=== PATIENT | female | born 1975 | race American Indian/Alaskan Native ===

== ENCOUNTER 2016-06-24 13:50 | Observation (INO) | payer OTHER ==
[2015-09-22 23:54] VITALS: BMI 24.4
[2016-06-24] MEDS ORDERED: Sodium Chloride 0.9% 1,000 ML IV SCH (14:20)
[2016-06-25] MEDS ORDERED: Sodium Chloride 0.9% 1,000 ML IV SCH (04:00)
[2016-06-25 07:00] VITALS: RESP 16
[2016-06-25 09:16] VITALS: BP 134/73; PULSE 67; TEMP 98.1
[2016-06-25] MEDS ORDERED: Ergocalciferol 50,000 Intl Units Cap PO SCH (10:00)
[2016-06-25 10:11] LABS: PH,URINE 5.5 (4.7-8.0); URINE BILIRUBIN SMALL (NEGATIVE); URINE BLOOD LARGE (NEGATIVE); URINE GLUCOSE (UA) NEGATIVE (NEGATIVE); URINE KETONE TRACE mg/dL (NEGATIVE); URINE LEUKOCYTE ESTERASE SMALL Leu/uL (NEGATIVE); URINE PROTEIN 100 mg/dL (<30 mg/dL)
[2016-06-25 10:12] LABS: URINE APPEARANCE CLOUDY (CLEAR); URINE COLOR RED (YELLOW); URINE EPITHELIAL CELLS 0 - 2 /hpf (0-5); URINE RBC TNTC /hpf (0-2); URINE WBC 0 - 2 /hpf (0-6)
[2016-06-25 10:30] VITALS: O2SAT 99
[2016-06-25 11:58] LABS: ADD MANUAL DIFF? NO; BASO # 0.02 K/mm3 (0.0-2.0); BASO % 0.4 % (0.0-3.0); EOS # 0.1 (0.0-0.7); EOS % 1.9 % (1.5-5.0); GRAN # 3.11 (1.4-6.5); GRAN % 66.6 % (50.0-68.0); HEMATOCRIT 31.7 % (36.0-48.0); LYMPH # 1.1 (1.2-3.4); LYMPH % 24.2 % (22.0-35.0); MEAN CELL VOLUME 69.8 fL (80.0-105.0); MEAN CORPUSCULAR HEMOGLOBIN 23.1 pg (25.0-35.0); MEAN CORPUSCULAR HGB CONC 33.1 g/dl (31.0-37.0); MONO # 0.3 (0.1-0.6); MONO % 6.9 % (1.0-6.0); PLATELET COUNT 268 10^3/uL (120.0-450.0); RED CELL DISTRIBUTION WIDTH 20.4 % (11.5-14.5); WHITE BLOOD COUNT 4.7 10^3/ul (4.5-11.0)
[2016-06-25 13:55] LABS: BLOOD UREA NITROGEN 9 mg/dL (7-21); CALCIUM 9.4 mg/dL (8.4-10.5); CARBON DIOXIDE 23 mmol/L (21-33); CHLORIDE 104 mmol/L (98-107); GFR AFRICAN-AMERICAN > 60; GLUCOSE,RANDOM 84 mg/dL (70-110); SODIUM 141 mmol/L (132-148)
[2016-06-25 13:56] LABS: ALKALINE PHOSPHATASE 128 U/L (38-133); ALT/SGPT 24 U/L (7-56); AST/SGOT 33 U/L (15-39); BILIRUBIN,TOTAL 0.6 mg/dL (0.2-1.3)
[2016-06-25 14:08] LABS: MEAN CELL VOLUME 64.9 fL (80.0-105.0); MEAN CORPUSCULAR HEMOGLOBIN 20.7 pg (25.0-35.0); MEAN CORPUSCULAR HGB CONC 31.9 g/dl (31.0-37.0); PLATELET COUNT 209 10^3/uL (120.0-450.0); RED CELL DISTRIBUTION WIDTH 17.5 % (11.5-14.5); WHITE BLOOD COUNT 5.5 10^3/ul (4.5-11.0)
--- NOTE | 2016-07-15 17:10 | DS ---
For Dr. Barrientos. SUBJECTIVE: The patient is a 41-year-old black female with hemoglobin significantly compromised with patient symptomatic with lightheadedness, dizziness, admitted by the Emergency Room for transfusion of 2 units of packed red blood cells which was done with good effect. The patient is now anxious for discharge home and we will do so after transfusion is completed. Again, the patient is otherwise in no acute distress. OBJECTIVE: VITAL SIGNS: Temperature 98.1, pulse 67, respirations 16, blood pressure 134/73. HEENT: Unremarkable. NECK: Supple. HEART: Regular rate. LUNGS: Clear. ABDOMEN: Soft, nontender. EXTREMITIES: No edema. SKIN: Warm, dry and clear. NEUROLOGIC: Awake, alert, and oriented x 3. LABORATORY DATA: Labs today include white blood cell count of 4.7, hemoglobin 10.5 up from 8.6 yeste rday, hematocrit 31.7, platelet count 268,000. Her chem metabolic panel was completely within normal range. Urinalysis showed large amount of blood, positive nitrite. Possibly with her menses. ASSESSMENT: Symptomatic anemia with transfusions needed. A history of fibroids. DISCHARGE MEDICATIONS: Include Tylenol as needed for pain. Also, vitamin D, Pepcid, Lasix, an d folic acid. PLAN: The patient is to continue present medical regimen with the patient to follow up with Dr. Maribel montiel for IV iron in approximately 1 week's time or earlier. Chapincito Cox MD cc: [phone] TT: 07/15/2016 17:09:49 marina
== END 2016-06-25 13:26 | disposition home or self-care (01) ==
LOC: ED 13:50 → ERH 14:20 → 3RSO 23:15
PROVIDERS: ADMIT Family Medicine; ATTEND Family Medicine
DX: D64.9 Anemia, unspecified (principal); R42 Dizziness and giddiness; R53.1 Weakness
CPT/HCPCS: 36415; 36430; 80053; 81001; 85025; 85027; 86850; 86900; 86920; 87086; 87206; 99281; G0378; J7040; P9016

== ENCOUNTER 2017-10-01 18:31 | Observation (INO) | payer OTHER ==
[2017-10-01 18:32] VITALS: BMI 24.4
[2017-10-01 19:46] LABS: PH,URINE 6.5 (4.7-8.0); URINE BILIRUBIN NEGATIVE (NEGATIVE); URINE BLOOD TRACE-INTACT (NEGATIVE); URINE GLUCOSE (UA) NEGATIVE (NEGATIVE); URINE LEUKOCYTE ESTERASE TRACE Leu/uL (NEGATIVE); URINE PROTEIN TRACE mg/dL (<30 mg/dL)
[2017-10-01] MEDS: Sodium Chloride 0.9% 1,000 ML IV SCH (19:46)
[2017-10-01 20:01] LABS: URINE APPEARANCE CLEAR (CLEAR); URINE COLOR YELLOW (YELLOW)
--- NOTE | 2017-10-01 20:01 | ED PDOC ---
Arrival/HPI - General Chief Complaint: Groin Pain Time Seen by Provider: 10/01/17 19:12 Historian: Patient - History of Present Illness Narrative History of Present Illness (Text): 10/01/17 19:58 42 year old female, whose past medical history includes uterine fibroids and a partial hysterectomy, presents to the emergency department with lower abdominal pain, since multiple days, and worsening in the past day. Patient states pain is localized more to lower right abdomen and has been intermittent over past few days. Patient denies any associated nausea, vomiting, or diarrhea. Patient also denies any urinary complaints, vaginal discharge, fever, chills, appetite changes, or any other complaints. Time/Duration: < week (few days, worsening over the past day) Symptom Onset: Gradual Symptom Course: Unchanged Quality: Cramping Past Medical History - Provider Review Nursing Documentation Reviewed: Yes - Infectious Disease Hx of Infectious Diseases: None - Cardiac Hx Cardiac Disorders: No - Pulmonary Hx Respiratory Disorders: No - Neurological Hx Neurological Disorder: Yes Hx Dizziness: Yes - HEENT Hx HEENT Disorder: No - Renal Hx Renal Disorder: No - Endocrine/Metabolic Hx Endocrine Disorders: No - Hematological/Oncological Hx Anemia: Yes - Integumentary Hx Dermatological Disorder: No - Musculoskeletal/Rheumatological Hx Falls: No - Gastrointestinal Hx Gastrointestinal Disorders: No - Genitourinary/Gynecological Hx Genitourinary Disorders: Yes (FIBROIDS) - Psychiatric Hx Psychophysiologic Disorder: No Hx Substance Use: No - Surgical History Hx Hysterectomy: Yes (Partial) Other/Comment: fibroids removed from uterus 06/03/15 - Anesthesia Hx Anesthesia Reactions: No Hx Malignant Hyperthermia: No Family/Social History - Physician Review Nursing Documentation Reviewed: Yes Family/Social History: No Known Family HX Smoking Status: Never Smoked Hx Alcohol Use: No Hx Substance Use: No Allergies/Home Meds Allergies/Adverse Reactions: Allergies celecoxib [From Celebrex] Allergy (Verified 10/01/17 19:01) RASH Home Medications: Home Meds Medication Instructions Recorded Confirmed No Known Home Med 10/01/17 10/01/17 Review of Systems - Physician Review All systems were reviewed & negative as marked: Yes - Review of Systems Constitutional: Normal. absent: Fevers, Night Sweats Eyes: Normal ENT: Normal Respiratory: Normal Cardiovascular: Normal Gastrointestinal: Abdominal Pain. absent: Diarrhea, Nausea, Vomiting, Appetite Changes Genitourinary Female: Normal. absent: Urine Output Changes, Vaginal Discharge Musculoskeletal: Normal Skin: Normal Neurological: Normal Endocrine: Normal Hemo/Lymphatic: Normal Psychiatric: Normal Physical Exam Vital Signs Reviewed: Yes Vital Signs Temp Pulse Resp BP Pulse Ox 10/01/17 22:45 76 18 151/87 H 99 10/01/17 21:44 82 16 157/93 H 100 10/01/17 18:56 98.6 F 76 18 167/86 H 100 Temperature: Afebrile Blood Pressure: Normal Pulse: Regular Respiratory Rate: Normal Appearance: Positive for: Well-Appearing, Non-Toxic, Comfortable Pain Distress: None Mental Status: Positive for: Alert and Oriented X 3 - Systems Exam Head: Present: Atraumatic, Normocephalic Pupils: Present: PERRL Extroacular Muscles: Present: EOMI Conjunctiva: Present: Normal Mouth: Present: Moist Mucous Membranes Neck: Present: Normal Range of Motion Respiratory/Chest: Present: Clear to Auscultation, Good Air Exchange. No: Respiratory Distress, Accessory Muscle Use Cardiovascular: Present: Regular Rate and Rhythm, Normal S1, S2. No: Murmurs Abdomen: Present: Tenderness (mild tenderness to RLQ), Normal Bowel Sounds. No : Rebound, Guarding Back: Present: Normal Inspection Upper Extremity: Present: Normal Inspection. No: Cyanosis, Edema Lower Extremity: Present: Normal Inspection. No: Edema Neurological: Present: GCS=15, CN II-XII Intact, Speech Normal Skin: Present: Warm, Dry, Normal Color. No: Rashes Psychiatric: Present: Alert, Oriented x 3, Normal Insight, Normal Concentration Medical Decision Making ED Course and Treatment: 10/01/17 20:04 Impression: 42 year old female presents to the emergency department with lower abdominal pain. Differential Diagnosis included but are not limited to: intractable pain secondary to ovarian cysts vs. appendicitis vs. air-pockets endocervical/ endometrial ?significant Plan: -- CT ABD & Pelvis -- Labs -- Urinalysis -- Reassess and disposition Prior Visits: Notes and results from previous visits were reviewed. Progress Notes: 10/01/17 22:58 CT Abdomen and Pelvis shows: Lung bases: There is minimal right base atelectasis. ABDOMEN: Liver: Unremarkable. No mass. Gallbladder and bile ducts: Unremarkable. No calcified stones. No ductal dilation. No significant wall thickening. Pancreas: Unremarkable. No mass. No ductal dilation. Spleen: Unremarkable. No splenomegaly. Adrenals: Unremarkable. No mass. Kidneys and ureters: Both kidneys are normal in morphology and demonstrate homogeneous enhancement without mass. No ureteral enlargement or stones are noted. Stomach and bowel: Bowel loops appear within normal limits, no signs of wall thickening, mucosal edema, or bowel distention. PELVIS: Appendix: The appendix is not definitively visualized. However, no secondary signs of appendicitis are present. Bladder: Unremarkable. No mass. Reproductive: Retroverted uterus. There has been a partial hysterectomy. Air pockets are identified within the endometrial cavity and within the cervical canal. The uterus appears slightly heterogeneous without obvious collections of fluid. Multiple ovarian follicles are present bilaterally largest on the right 2.6 cm. ABDOMEN and PELVIS: Intraperitoneal space: Within the pelvis, no free fluid or fluid collections or abscess. No free air is seen. Bones/joints: No acute fracture. No dislocation. Soft tissues: Unremarkable. Vasculature: Small nonspecific varices near the spleen. The spleen otherwise unremarkable. The aorta and IVC appear within normal limits. No abdominal aortic aneurysm. Lymph nodes: Unremarkable. No enlarged lymph nodes. IMPRESSION: Heterogeneous uterus with a number of air pockets within the endometrial cavity and within the endocervical canal. Differential diagnosis includes postoperative change although active infection with gas-forming organisms cannot be excluded. No evidence of pelvic abscess or fluid collection. Bilateral ovarian follicles as described. Consider correlation the transvaginal sonogram as clinically warranted. Dictated and Authenticated by: Brody Velasco MD 10/01/2017 10:23 PM Eastern Time ([place] & [place]) 10/02/17 01:08 Transvaginal US shows: Uterus/cervix: Unremarkable. Normal endometrial stripe thickness 1.4 mm. No myometrial mass. The uterus measures 4.9 cm x 2.1 cm x 3 cm. Comparing to prior pelvic ultrasound multiple uterine fibroids are no longer visible Right ovary: Enlarged RIGHT ovary. 7.6 cm 3.4 cm x 6 cm. A large simple cyst is seen measuring 4.8 cm x 1.7 cm x 3.9 cm several smaller cysts are present Normal blood flow. Left ovary: Unremarkable. No mass. Normal blood flow. LEFT ovary measures 4 cm x 2 cm x 3.7 cm. Multiple follicular cysts are present. Free fluid: No free fluid. IMPRESSION: 1. Unremarkable uterus normal endometrium 2. Large RIGHT ovary with multiple cysts 3. Negative LEFT ovary. 10/02/17 01:30 Pelvic exam performed, PATRICIA Quick present as hat and cap sewer, no cervical motion tenderness, no adnexal tenderness, no palpable masses, no discharge, cervical os closed. 10/02/17 02:[address] Hammond, who is aware and agrees with plan. Accepts pt in to her service. [facility] pain. Requests Dr. Mcnulty on consult. - Lab Interpretations Lab Results: 10/01/17 19:35 10/01/17 19:35 Lab Results 10/01/17 19:35: WBC 8.3 D, RBC 5.20, Hgb 12.3, Hct 36.0, MCV 69.2 L, MCH 23.7 L , MCHC 34.2, RDW 16.1 H, Plt Count 303 10/01/17 19:35: Sodium 142, Potassium 3.6, Chloride 105, Carbon Dioxide 25, Anion Gap 15, BUN 11, Creatinine 0.5 L, Est GFR ( Amer) > 60, Est GFR ( Non-Af Amer) > 60, Random Glucose 83, Calcium 9.1, Total Bilirubin 0.3, AST 31, ALT 14, Alkaline Phosphatase 148 H, Total Protein 8.2, Albumin 4.3, Globulin 3.9 , Albumin/Globulin Ratio 1.1, Lipase 83 10/01/17 19:20: Urine Color Yellow, Urine Appearance Clear, Urine pH 6.5, Ur Specific [place] 1.020, Urine Protein Trace H, Urine Glucose (UA) Negative, Urine Ketones Negative, Urine Blood Trace-intact H, Urine Nitrate Negative, Urine Bilirubin Negative, Urine Urobilinogen 1.0 H, Ur Leukocyte Esterase Trace H, Urine RBC 0 - 2, Urine WBC 0 - 2, Ur Epithelial Cells 6 - 8, Urine Bacteria Neg, Urine HCG, Qual Negative I have reviewed the lab results: Yes - RAD Interpretation Radiology Orders: 10/01/17 19:26 ABD & PELVIS IV CONTRAST ONLY [CT] Stat 10/01/17 23:00 TRANSVAGINAL [US] Stat [place] Sewer: Radiologist - Medication Orders Current Medication Orders: Sodium Chloride (Sodium Chloride 0.9%) 1,000 mls @ 100 mls/hr IV .Q10H ALEX Last Admin: 10/01/17 19:46 Dose: 100 mls/hr eMAR Start Stop Document 10/01/17 19:46 CNR (Rec: 10/01/17 19:46 CNR [id number]) Intravenous Solution Start Date 10/01/17 Start Time 19:46 Sodium Chloride (Sodium Chloride 0.9%) 1,000 mls @ 100 mls/hr IV .Q10H STA Stop: 10/02/17 12:26 - Scribe Statement The provider has reviewed the documentation as recorded by the Josephibe Sanjiv Schmidt Provider Scribe Attestation: All medical record entries made by the Scribe were at my direction and personally dictated by me. I have reviewed the chart and agree that the record accurately reflects my personal performance of the history, physical exam, medical decision making, and the department course for this patient. I have also personally directed, reviewed, and agree with the discharge instructions and disposition. Disposition/Present on Arrival - Present on Arrival Any Indicators Present on Arrival: No History of DVT/PE: No History of Uncontrolled Diabetes: No Urinary Catheter: No History of Decub. Ulcer: No History Surgical Site Infection Following: None - Disposition Have Diagnosis and Disposition been Completed?: Yes Diagnosis: Abdominal pain Disposition: HOSPITALIZED Disposition Time: 02:24 Patient Plan: Observation Patient Problems: Current Active Problems Problem Status Onset Abdominal pain Acute Condition: STABLE Referrals: Carito Hammond MD [Primary Care Provider] - Follow up with primary Forms: N-1-1 (Tajik)
[2017-10-01 20:02] LABS: HCG,QUALITATIVE URINE NEGATIVE (NEGATIVE)
[2017-10-01 20:09] LABS: URINE RBC 0 - 2 /hpf (0-2); URINE WBC 0 - 2 /hpf (0-6)
[2017-10-01 20:10] LABS: HEMOGLOBIN 12.3 g/dL (12.0-16.0); MEAN CELL VOLUME 69.2 fl (80.0-105.0); MEAN CORPUSCULAR HEMOGLOBIN 23.7 pg (25.0-35.0); MEAN CORPUSCULAR HGB CONC 34.2 g/dl (31.0-37.0); PLATELET COUNT 303 10^3/uL (120.0-450.0); RED CELL DISTRIBUTION WIDTH 16.1 % (11.5-14.5); WHITE BLOOD COUNT 8.3 10^3/ul (4.5-11.0)
[2017-10-01 20:10] LABS: URINE BACTERIA NEG (NEG)
[2017-10-01 20:52] LABS: ALB/GLOB RATIO 1.1 (1.1-1.8); ALBUMIN 4.3 g/dL (3.0-4.8); ALT/SGPT 14 U/L (7-56); AST/SGOT 31 U/L (14-36); BLOOD UREA NITROGEN 11 mg/dL (7-21); CALCIUM 9.1 mg/dL (8.4-10.5); GFR NON-AFRICAN AMERICAN > 60; LIPASE 83 U/L (23-300)
[2017-10-01] MEDS ORDERED: Iohexol 350 MG/100 ML VIAL ONE (21:00)
[2017-10-02] MEDS ORDERED: Sodium Chloride 0.9% 1,000 ML IV STA (02:27)
[2017-10-02] MEDS ORDERED: Morphine 2 mg/ml ISec IVP PRN (04:07)
--- NOTE | 2017-10-02 08:09 | CP.PCM.CON ---
History of Present Illness - History of Present Illness History of Present Illness: Surgery Consult: Dr. David Pt is a 42F with PMHx significant for fibroids who presented to [facility] with complaints of right/left lower quadrant pain & fullness. Pt states her pain started two days ago as generalized and dull and then localized more so to the lower half of her abdomen. She recalls having a similar episode in the past when she had her fibroids removed. She states she no longer gets her period because she had a "partial hysterectomy" when her fibroids were removed. She denies having any other symptoms such as nausea/vomiting, fevers/chills, diarrhea or constipation. In the ER, pt had a CT abdomen/pelvis which showed R ovarian cyst and other non- specific findings. Surgery called to evaluate. Currently, pt states she feels a little better but pain is still present. She denies other complaints. PMHx: Fibroids PSHx: Myomectomy with partial hysterectomy SocialHx: denies smoking, EtOH/drugs NKDA Review of Systems - Review of Systems All systems: reviewed and no additional remarkable complaints except (as per HPI ) Past Patient History - Infectious Disease Hx of Infectious Diseases: None - Past Social History Smoking Status: Never Smoked - CARDIAC Hx Cardiac Disorders: No - PULMONARY Hx Respiratory Disorders: No - HEENT Hx HEENT Problems: No - RENAL Hx Chronic Kidney Disease: No - ENDOCRINE/METABOLIC Hx Endocrine Disorders: No - HEMATOLOGICAL/ONCOLOGICAL Hx Anemia: Yes - INTEGUMENTARY Hx Dermatological Problems: No - MUSCULOSKELETAL/RHEUMATOLOGICAL Hx Falls: No - GASTROINTESTINAL Hx Gastrointestinal Disorders: No - GENITOURINARY/GYNECOLOGICAL Hx Genitourinary Disorders: Yes (FIBROIDS) - PSYCHIATRIC Hx Psychophysiologic Disorder: No Hx Substance Use: No - SURGICAL HISTORY Hx Hysterectomy: Yes (Partial) Other/Comment: fibroids removed from uterus 06/03/15 - ANESTHESIA Hx Anesthesia: Yes Hx Anesthesia Reactions: No Hx Malignant Hyperthermia: No Meds Allergies/Adverse Reactions: Allergies Allergy/AdvReac Type Severity Reaction Status Date / Time celecoxib [From Celebrex] Allergy RASH Verified 10/01/17 19:01 - Medications Medications: Current Medications Sodium Chloride (Sodium Chloride 0.9%) 1,000 mls @ 100 mls/hr IV .Q10H ALEX Last Admin: 10/01/17 19:46 Dose: 100 mls/hr Sodium Chloride (Sodium Chloride 0.9%) 1,000 mls @ 100 mls/hr IV .Q10H STA Stop: 10/02/17 12:26 Morphine Sulfate (Morphine) 2 mg IVP Q4H PRN PRN Reason: Pain, moderate (4-7) Last Admin: 10/02/17 04:17 Dose: 2 mg Physical Exam - Constitutional Appears: Well, No Acute Distress - Head Exam Head Exam: ATRAUMATIC, NORMOCEPHALIC - Eye Exam Eye Exam: Normal appearance - ENT Exam ENT Exam: Mucous Membranes Moist - Respiratory Exam Respiratory Exam: NORMAL BREATHING PATTERN - Cardiovascular Exam Cardiovascular Exam: RRR - GI/Abdominal Exam GI & Abdominal Exam: Soft, Tenderness (suprapubic with deep palpation ). absent : Distended, Guarding, Rebound - Neurological Exam Neurological exam: Alert, Oriented x3 - Skin Skin Exam: Dry, Warm Results - Vital Signs Recent Vital Signs: Last Vital Signs Temp 97.9 F 10/02/17 04:39 Pulse 73 10/02/17 04:39 Resp 20 10/02/17 04:39 BP 151/88 H 10/02/17 04:39 Pulse Ox 100 10/02/17 03:17 - Labs Result Diagrams: 10/01/17 19:35 10/01/17 19:35 - Imaging and Cardiology CT scan - abdomen Status: Image reviewed by me, Report reviewed by me Assessment & Plan - Assessment and Plan (Free Text) Assessment: 42F with abdominal pain Plan: - pain likely related to ovarian cyst/possible fibroids - f/u transvaginal US - 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 Frankie Mars
[2017-10-02] MEDS: Sodium Chloride 0.9% 1,000 ML IV SCH (08:54)
--- NOTE | 2017-10-02 09:13 | CT ---
Date of service: 10/01/2017 PROCEDURE: CT Abdomen and Pelvis with contrast HISTORY: lower abdominal pain COMPARISON: 02/21/2015 TECHNIQUE: CT scan of the abdomen and pelvis was performed after administration of intravenous contrast. Oral contrast was not administered. Coronal and sagittal reformatted images were obtained. Contrast dose: 100 mL Omnipaque 350 Radiation dose: Total exam DLP = 272.91 mGy-cm. This CT exam was performed using one or more of the following dose reduction techniques: Automated exposure control, adjustment of the mA and/or kV according to patient size, and/or use of iterative reconstruction technique. FINDINGS: LOWER THORAX: There is linear atelectasis/scarring in the right lung base. The left lung base is clear. LIVER: Normal in size with homogeneous enhancement. No gross lesion or ductal dilatation. GALLBLADDER AND BILE DUCTS: No calcified gallstones. PANCREAS: Normal in size with homogeneous enhancement. No gross lesion or ductal dilatation. SPLEEN: Normal in size and appearance. ADRENALS: No discrete nodule. KIDNEYS AND URETERS: Normal in size with homogeneous enhancement. No hydronephrosis. No solid mass. VASCULATURE: No aortic aneurysm. BOWEL: The small bowel loops are normal in caliber. There is large amount of stool in the colon. No bowel obstruction. APPENDIX: Normal appendix. PERITONEUM: No free fluid. No free air. LYMPH NODES: No enlarged lymph nodes. BLADDER: Normal in appearance. REPRODUCTIVE: The uterus is normal in size. There are multiple foci of air in the endometrial and endocervical canal. There are multiple cysts in the right ovary, the largest measures 2.5 cm. BONES: No acute fracture. OTHER FINDINGS: None. IMPRESSION: No acute abdominal or pelvic abnormality. Multiple cysts in the right ovary, the largest measures 2.5 cm. Correlation with pelvic ultrasound is recommended. Air in the endometrial endocervical canal could be related to recent surgical intervention or maybe post coital in etiology. Infection is not entirely excluded. Clinical focal follow-up is advised. A preliminary report was provided by [employer]
--- NOTE | 2017-10-02 10:52 | US ---
Date of service: 10/01/2017 HISTORY: pain COMPARISON: None available. TECHNIQUE: Transvaginal pelvic ultrasound was performed. FINDINGS: UTERUS: Measures 4.9 x 2.1 x 3.0 cm. Status post partial hysterectomy. ENDOMETRIUM: Measures 1.4 mm in diameter. Unremarkable. CERVIX: No cervical abnormality identified. RIGHT OVARY: Measures 7.6 x 3.4 x 6.0 cm. No solid mass. Normal flow. There is a tubular cystic structure in the right adnexa and thin linear echogenic lace-like appearance in the right ovary. LEFT OVARY: Measures 4.1 x 2.0 x 3.7 cm. No solid mass. Normal flow. There are 2 cysts measuring 1.5 x 1.1 x 1.5 cm and 1.9 x 0.9 x 1.6 cm. FREE FLUID: No significant free fluid noted. OTHER FINDINGS: None. IMPRESSION: The right ovary is enlarged. Tubular cystic structure in the right adnexa could represent hydrosalpinx. Suspect complicated/hemorrhagic cyst in the right ovary. No evidence for torsion. Small simple cysts in the left ovary. A preliminary report was provided by [employer].
[2017-10-02] MEDS: metroNIDAZOLE IV 500 mg/100 ml 500 MG/100 ML BAG IVPB SCH ×2 (13:37→21:54)
[2017-10-02] MEDS: cefTRIAXone 1 gm 1 GM/100 ML BAG IVPB SCH (13:38)
--- NOTE | 2017-10-02 15:55 | CP.PCM.PCO ---
Physician Communication Note - Physician Communication Note Physician Communication Note: Dx:R HemorOvarian cyst-Pt requests DrMarki/No surgery dinora
--- NOTE | 2017-10-02 16:03 | ED PDOC ---
ED Additional Note - Physician Additional Note Physician Additional Note: Transvaginal US placed into PA review folder; FINDINGS: UTERUS: Measures 4.9 x 2.1 x 3.0 cm. Status post partial hysterectomy. ENDOMETRIUM: Measures 1.4 mm in diameter. Unremarkable. CERVIX: No cervical abnormality identified. RIGHT OVARY: Measures 7.6 x 3.4 x 6.0 cm. No solid mass. Normal flow. There is a tubular cystic structure in the right adnexa and thin linear echogenic lace-like appearance in the right ovary. LEFT OVARY: Measures 4.1 x 2.0 x 3.7 cm. No solid mass. Normal flow. There are 2 cysts measuring 1.5 x 1.1 x 1.5 cm and 1.9 x 0.9 x 1.6 cm. FREE FLUID: No significant free fluid noted. OTHER FINDINGS: None. IMPRESSION: The right ovary is enlarged. Tubular cystic structure in the right adnexa could represent hydrosalpinx. Suspect complicated/hemorrhagic cyst in the right ovary. No evidence for torsion. Small simple cysts in the left ovary. A preliminary report was provided by [employer]. I discussed findings of hydrosalpinx with dr. 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
[2017-10-03] MEDS: metroNIDAZOLE IV 500 mg/100 ml 500 MG/100 ML BAG IVPB SCH ×3 (05:19→22:05)
[2017-10-03 07:02] LABS: HEMOGLOBIN 11.6 g/dL (12.0-16.0); MEAN CELL VOLUME 69.2 fl (80.0-105.0); MEAN CORPUSCULAR HEMOGLOBIN 22.9 pg (25.0-35.0); MEAN CORPUSCULAR HGB CONC 33.1 g/dl (31.0-37.0); PLATELET COUNT 216 10^3/uL (120.0-450.0); RBC 5.06 10^6/uL (3.5-6.1); WHITE BLOOD COUNT 6.8 10^3/ul (4.5-11.0)
[2017-10-03 07:14] LABS: BLOOD UREA NITROGEN 7 mg/dL (7-21); CALCIUM 9.1 mg/dL (8.4-10.5); GFR NON-AFRICAN AMERICAN > 60; HDL CHOLESTEROL 41 mg/dL (29-60)
[2017-10-03 07:20] LABS: IRON 80 ug/dL (45-180)
[2017-10-03 07:25] LABS: LDL CHOLESTEROL 101 mg/dL (0-129)
[2017-10-03 07:29] LABS: % IRON SATURATION 19 % (20-55); TOTAL IRON BINDING CAPACITY 421 ug/dL (265-497)
[2017-10-03] MEDS: cefTRIAXone 1 gm 1 GM/100 ML BAG IVPB SCH (09:13)
--- NOTE | 2017-10-03 09:16 | HP ---
date 10/02/17 Copied To: Carito Hammond MD Attending MD: Carito Hammond MD CHIEF COMPLAINT: Groin pain. HISTORY OF PRESENT ILLNESS: Ms. Rachell Leos, a 42-year-old my private patient with history of multiple time uterine fibroids, partial hysterectomy, came to the Emergency Department with lower abdominal pain from many days and worsening in the past day. The patient states the pain is localized more to lower right abdomen and has been intermittent over past few days. The patient's mother was sitting on the bedside and aunt was sitting on the bedside also, actually they gave more history. The patient denied any associated nausea, vomiting or diarrhea. The patient also denies any urinary symptoms or vaginal discharge. No fever, no chills. No appetite changes. No hematuria or hematochezia. PAST MEDICAL HISTORY: Dizziness, fibroid uterus, partial hysterectomy, surgery of fibroid uterus by Dr. Johnson. FAMILY HISTORY: Father and mother, noncontributory. HABITS: Never smoked. No drugs. No ethanol. ALLERGIES: THE PATIENT IS ALLERGIC WITH CELEBREX. HOME MEDICATIONS: Denied. REVIEW OF SYSTEMS: The patient was seen and examined on the bedside. Mother and aunt was sitting on the bedside also. No nausea, vomiting, diarrhea. No hematuria or hematochezia. No headache. No dizziness. No chest pain. No appetite change. No urine output change. No vaginal discharge. Having pelvic pain. PHYSICAL EXAMINATION: VITAL SIGNS: Temperature 98.6, pulse 100, respiratory rate 18, blood pressure 167/86.. HEENT: Head normocephalic, atraumatic. Eyes PERRLA. Extraocular muscles intact. Conjunctivae clear. Nose patent. Mucous membrane moist. NECK: Supple. No carotid bruit. No JVD or thyromegaly. CHEST: Bilaterally symmetrical. HEART: S1 and S2 positive. LUNGS: Clear to auscultation. ABDOMEN: Tender. Mild tenderness in the right lower quadrant. Normal bowel sounds. No organomegaly. No rebound. No guarding. EXTREMITIES: No edema. No cyanosis. NEUROLOGICAL: The patient is awake, alert. Follows simple commands. Cranial nerves II through XII are grossly intact. LABORATORY DATA: White blood cells noted , hemoglobin 12.3, hematocrit 36, platelets 303. Sodium 142, potassium 3.6, BUN 11, creatinine 0.5, glucose 83. ASSESSMENT AND PLAN: abdominal pain , pelvic pain . h/o partial hysterctomy , h /o pre syncopy . ovarian cyst . r/o pid . obgyn and surgery consult called , anbts started , d/d wit dr lopez , will f/u Carito Hammond MD MTDD
[2017-10-03] MEDS ORDERED: Methylene Blue 10 mg/mL(10ml) IV ONE (10:16)
[2017-10-03] MEDS ORDERED: Heparin 10,000 Units/ml ONE (10:17)
[2017-10-03] MEDS ORDERED: Midazolam 2 MG/2 ML VIAL ONE (11:24)
[2017-10-03] MEDS ORDERED: Propofol 10 mg/ml Inj (20 ML) ONE ×2 (11:24→12:55)
[2017-10-03] MEDS ORDERED: Desflurane Inhalation Anesthetic Liq (240 ml) ONE (11:37)
[2017-10-03] MEDS ORDERED: Rocuronium 10 mg/ml (5 ml) ONE (11:37)
[2017-10-03] MEDS ORDERED: Bupivacaine 0.25% Inj(30mL) ONE (11:40)
[2017-10-03] MEDS ORDERED: Bupivacaine 0.5% Inj(30mL) ONE (11:40)
[2017-10-03] MEDS ORDERED: Triamcinolone Acetonide 40 mg/mL Inj ONE (13:08)
[2017-10-03 13:19] LABS: FOLATE 5.8 ng/mL
[2017-10-03] MEDS ORDERED: Bupivacaine 0.5% Inj(30mL) IJ ONE (14:19)
[2017-10-03] MEDS ORDERED: Triamcinolone 0.1% Orabase TUBE MM ONE (14:19)
[2017-10-03] MEDS ORDERED: Neostigmine Methylsulfate 3mg/3ml Syringe IV ONE (14:37)
[2017-10-03] MEDS ORDERED: Oxycodone/Acetaminophen 5/325 mg Tab PO PRN (14:44)
--- NOTE | 2017-10-03 14:44 | PCM.SURG1 ---
Surgeon's Initial Post Op Note - Surgeon's Notes Surgeon: Dr. Johnson Senior Program Manager: Dominick PGY2 Type of Anesthesia: General Endo, Local Anesthesia Administered By: Dr. Mcgowan Pre-Operative Diagnosis: Right hydrosalpinx, Right ovarian lesion Operative Findings: Right hydrosalpinx, pelvic adhesions, Right ovarian hemorrhagic cyst Post-Operative Diagnosis: Right hydrosalpinx, pelvic adhesions, Right ovarian hemorrhagic cyst Operation Performed: Laparoscopic adhesiolysis, removal of right ovarian cyst, partial salpingectomy, and appendectomy Specimen/Specimens Removed: cyst content, piece of fallopian tube Estimated Blood Loss: EBL {In ML}: 20 Blood Products Given: N/A Drains Used: Jonathon (15 fr) Post-Op Condition: Good Date of Surgery/Procedure: 10/03/17 Time of Surgery/Procedure: 14:43
[2017-10-03] MEDS ORDERED: Lactated Ringer's 1,000 ML IV SCH (14:45)
--- NOTE | 2017-10-03 17:22 | US ---
HISTORY: Leg pain and swelling. Evaluate for DVT PHYSICIAN(S): Sanjiv Nguyen MD. TECHNIQUE: Duplex sonography and color-flow Doppler with graded compression were used to evaluate the deep venous systems of both lower extremities. FINDINGS: The visualized deep venous systems of both lower extremities are sonographically normal and compressible. Normal wave forms and augmentation are seen. There is no sonographic evidence for deep venous thrombosis in the visualized segments of both lower extremities. IMPRESSION: No sonographic evidence for deep venous thrombosis in the visualized segments of both lower extremities.
[2017-10-03 21:51] VITALS: RESP 20
[2017-10-04] MEDS: metroNIDAZOLE IV 500 mg/100 ml 500 MG/100 ML BAG IVPB SCH (05:12)
[2017-10-04 06:57] LABS: HEMOGLOBIN 10.3 g/dL (12.0-16.0); MEAN CORPUSCULAR HEMOGLOBIN 22.8 pg (25.0-35.0); MEAN CORPUSCULAR HGB CONC 33.1 g/dl (31.0-37.0); PLATELET COUNT 204 10^3/uL (120.0-450.0); RBC 4.51 10^6/uL (3.5-6.1); RED CELL DISTRIBUTION WIDTH 15.9 % (11.5-14.5); WHITE BLOOD COUNT 9.8 10^3/ul (4.5-11.0)
[2017-10-04 07:33] LABS: BLOOD UREA NITROGEN 11 mg/dL (7-21); GFR NON-AFRICAN AMERICAN > 60
--- NOTE | 2017-10-04 08:40 | PN ---
Copied To: Carito Hammond MD Attending MD: Carito Hammond MD DATE: 10/03/2017 SUBJECTIVE: Patient is a 42-year-old female. Patient was seen and examined on the bedside before surgery. Sister, mother, and aunt were on the bedside. Still having lower abdominal pain. No nausea, vomiting or diarrhea. No hematuria or hematochezia. No headache. No dizziness. No chest pain. No palpitation. PHYSICAL EXAMINATION: VITAL SIGNS: Temperature 97.6, pulse 52, blood pressure 140/90, respiratory rate 16. HEENT: Head: Normocephalic, atraumatic. Eyes: PERRLA. Extraocular muscles intact. Conjunctivae clear. Nose patent. Mucous membrane moist. NECK: Supple. No carotid bruit, JVD, or thyromegaly. CHEST: Bilaterally symmetrical. HEART: S1 and S2 positive. LUNGS: Clear to auscultation. ABDOMEN: Soft. Bowel sounds present. No organomegaly. EXTREMITIES: No edema. No cyanosis. NEUROLOGIC: Patient is awake and alert. Moving all four extremities. No focal deficit. MEDICATIONS: Flagyl, Lasix, Percocet, Protonix, Toradol. LABORATORY DATA: White blood cells noted , hemoglobin 11.6, hematocrit 35, platelets 216. Sodium 142, potassium 3.2, BUN 7, creatinine 0.5, glucose 107, calcium 9.1. ASSESSMENT AND PLAN: Ms. Rachell Leos is a 42-year-old lady with anemia; hypokalemia, replaced , iron deficiency , alkaline phosphatase came with lower abdominal pain. Seen by Dr. Johnson. Went for laparoscopic operation, laparoscopic ovarian cystectomy, laparoscopic appendectomy, pelvic adhesion, right hydrosalpinx, hemorrhagic cyst. Appreciated input. Gastrointestinal and deep venous thrombosis prophylaxes. Repeat labs. We will follow up. Carito Hammond MD [facility]
[2017-10-04 14:56] VITALS: BP 153/86; PULSE 75; TEMP 99; O2SAT 96
--- NOTE | 2017-10-05 20:19 | DS ---
10/04/17 Copied To: Carito Hammond MD Attending MD: Carito Hammond MD CHIEF COMPLAINT: Groin pain. HISTORY OF PRESENT ILLNESS: Ms. Rachell Leos, 42-year-old my private patient with history of multiple time uterine fibroid, partial hysterectomy, came to the emergency room with lower abdominal pain for many days, worsening recently. The patient states that the pain is localized more to the lower right abdomen and has been intermittent over past few days. The patient's mother and aunt were sitting on the bedside and they gave me more history. The patient denies nausea, vomiting, diarrhea, fever, chills. We admitted the patient and did CAT scan of abdomen and pelvis. Transvaginal ultrasound was done. The patient was seen by Dr. Rupesh David. Appreciated communication report. Extremity ultrasound was done because the patient had swelling of the leg that was negative for clot, got Lasix. Swelling got better. Seen by Dr. Johnson, MOTORBOAT MECHANIC, went for procedure. MOTORBOAT MECHANIC cleared the patient for discharge. resident medical officer actually wrote prescription and discharged the patient. Follow up in my office as outpatient and [employer]CH[employer]IC. We will follow up with the patient's H and H. PAST MEDICAL HISTORY: Dizziness, fibroid uterus, partial hysterectomy, surgery of the fibroid uterus by Dr. Johnson, history of presyncope, history of blood transfusion. FAMILY HISTORY: Father and mother, noncontributory. HABITS: Never smoked. No drugs. No ethanol. ALLERGIES: THE PATIENT IS ALLERGIC WITH CELEBREX. HOME MEDICATIONS: Denied. REVIEW OF SYSTEMS: The patient was seen and examined on the bedside, looking comfortable. No nausea, vomiting, diarrhea. No hematuria or hematochezia. No headache. No dizziness. No chest pain. No palpitation. No fever. No chills. PHYSICAL EXAMINATION: VITAL SIGNS: Temperature 99, pulse 75, blood pressure 153/86, respiratory rate 20. HEENT: Head normocephalic, atraumatic. Eyes PERRLA. Extraocular muscles intact. Conjunctivae clear. Nose patent. Mucous membrane moist. NECK: Supple. No carotid bruit. No JVD or thyromegaly. CHEST: Bilaterally symmetrical. HEART: S1 and S2 positive. LUNGS: Clear to auscultation. ABDOMEN: Soft. Bowel sounds positive. No organomegaly. EXTREMITIES: No edema. No cyanosis. NEUROLOGICAL: The patient is awake and alert. Moving all 4 extremities. No focal deficits. MEDICATIONS: Flagyl, lactated Ringer's, Lasix, Percocet, Protonix, Rocephin, tramadol. LABORATORY DATA: White blood cells 9.8; hemoglobin 10.3, on admission it was 12.3; hematocrit 31.1; platelets 204. Sodium 149; potassium 3.4, replaced; BUN 11; creatinine 0.6; B12 of 304; TSH 1.03. ASSESSMENT AND PLAN: Mr. Rachell Leos, 42-year-old female with anemia; hypokalemia, replaced; iron deficiency. Came with pelvic pain. Went for laparoscopic operation, laparoscopic ovarian cystectomy, laparoscopic appendectomy, pelvic adhesion, right hydrosalpinx, hemorrhagic cyst surgery. They cleared the patient. The patient was given gastrointestinal, deep venous thrombosis prophylaxes. Hypertension, history of swelling of the legs, that is why I gave her water pill, improved. The patient was cleared by the Obstetrics/Gynecology Surgery. Discharged home. Follow up in my office. Prescription of medications given. Carito Hammond MD [facility]
--- NOTE | 2017-10-11 09:16 | OP ---
Copied To: Oral Johnson MD Attending MD: Oral Johnson MD PROCEDURE DATE: 10/03/2017 PREOPERATIVE DIAGNOSES: Acute right pelvic pain, secondary diagnosis is ovarian mass. POSTOPERATIVE DIAGNOSES: 1. Acute right pelvic pain, secondary diagnosis is ovarian mass with right 8-cm ovarian cyst. 2. Right hydrosalpinx. 3. 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 4. Chronic appendicitis. SURGEON: Oral Johnson MD [employer]RARY CLERICAL ASSISTANT SURGEON: Kofi Tan DO PROCEDURE PERFORMED: Operative laparoscopy, extensive lysis of adhesions, right partial salpingectomy, right cystectomy, and a laparoscopic appendectomy. ANESTHESIA: General endotracheal. ESTIMATED BLOOD LOSS: Minimal. DESCRIPTION OF PROCEDURE: Procedure went as follows. After a long discussion was held with the patient, the entire procedure was explained to the patient, the patient agreed, all consents were signed, and the patient was brought into operating room. General endotracheal anesthesia was induced. The patient was prepped and draped in usual sterile fashion. An examination again under anesthesia revealed the uterus to be previously removed, the cervix was found to be normal and intact, right adnexa revealed a large right pelvic mass, left adnexa was felt to be negative. Bladder was catheterized and 70 mL of urine were obtained. The Luna catheter was inserted. Attention was turned to the abdomen where a subumbilical incision was made. Incision was brought down to the fascia and the fascia was opened. The rectus muscles split, peritoneum was visualized, grasped with 2 hemostats, opened and a blunt port trocar was inserted. Visualization of the pelvic cavity revealed the following. The patient was noted to have extensive right adnexal adhesions. The right lower quadrant could not be visualized well because of the bowel and omental adhesions. A second puncture was made to the left suprapubic area and under direct visualization, grasping instrument was inserted. Using Endo Verito scissors and LigaSure device, extensive lysis of adhesions was carried out. Once the adhesions were carried down, a large 4 cm in diameter long mass was visualized. This mass was the patient's right hydrosalpinx. The ovary itself could not be visualized yet because of sitting under this mass. As continued dissection was carried down with the patient in deep Trendelenburg position, this mass was dissected free and a partial salpingectomy was performed. That specimen sent to Pathology for examination. As the dissection carried down further, it was noted that the patient's appendix was fused directly to the ovary itself. The appendix itself looked stiff, had no enlargement at any tip, but it was noted to be rigid. This time frame, continued dissection was carried down around the appendix just freeing the appendix from this right adnexal mass. Once the appendix was freed, it would be reevaluated as the case would proceed. The ovarian cyst was then visualized. The ovary itself was fused with the right posterior pelvic wall and could not be completely elevated. A right ovarian cystectomy was performed that specimen sent to Pathology for examination. Copious amounts of clear fluid were noted coming from this area. The edge of the ovarian cyst was cauterized with bursts of bipolar cauterization. Hemostasis again was excellent throughout this entire time. The pelvis was irrigated and continued to be monitored for bleeding and no bleeding was noted. As a note, the cul-de-sac itself was noted to be free and clear, left adnexa was noted to be normal. Attention was then turned to the right adnexal area again and visualization of the appendix was made. The appendix itself was examined from all areas. It was noted to be stiff and noted to be hard, question of whether an early appendicitis was forming here. Decision to perform an appendectomy was then made. A second puncture was made in the area of McBurney point and through this, a diagnostic scope was inserted. Visualization of the appendix with 5 mm scope allowed to find the appendiceal artery and cauterize this. Afterwards a window was made in the appendiceal fat and a LUCILA was placed through this area incorporating the base of the appendix. It was fired upon, appendix was then removed. This specimen was sent to Pathology for examination. The pelvis was irrigated again and all possible bleeding points were checked and found to be stable. The procedure then was terminated this point and the pneumoperitoneum was relieved, 0 Vicryl was used to close the fascial incision, 4-0 Monocryl was used to close the skin. Dermabond was applied. Marcaine was instilled into all incision points. The patient was awakened gently and sent to recovery room in stable condition. Oral Johnson MD [facility] # [id number]
== END 2017-10-04 16:47 | disposition home or self-care (01) ==
LOC: ED 18:31 → ERH 10-02 02:25 → 5RNO 10-02 03:24
PROVIDERS: ADMIT Internal Medicine; ATTEND Internal Medicine
DX: N83.02 Follicular cyst of left ovary (principal); N70.11 Chronic salpingitis; K36 Other appendicitis; N73.6 Female pelvic peritoneal adhesions (postinfective); D50.9 Iron deficiency anemia, unspecified; E87.6 Hypokalemia; I10 Essential (primary) hypertension; Z90.710 Acquired absence of both cervix and uterus
CPT/HCPCS: 36415; 44970; 49329; 58661; 58662; 74177; 76830; 80048; 80053; 80061; 81001; 82607; 82746; 83036; 83540; 83550; 83690; 84443; 84703; 85027; 87086; 88304; 88305; 93970; 96365; 96366; 96368; 96375; 96376; 99284; C9113; G0378; J0131; J0690; J0696; J1100; J1885; J1940; J2250; J2270; J2405; J2704; J2710; J2765; J3010; J3301; J3480; J7030; J7120; Q9967